=== PATIENT | female | born 1960 | race Caucasian/White ===

== ENCOUNTER → 2016-03-10 11:34 | Outpatient (CLI) | payer BC ==
[2016-01-27 11:52] VITALS: BMI 33.9
[~2016-03-10 11:34] MED LIST: BAYER CHEWABLE81 MG PO; DIABETIC VITAMIN PO; ELIQUIS2.5 MG PO; FISH OIL 1,2001 CAP PO; FLUTICASONE PRO16 GM NASAL; GLUCOPHAGE1000 MG PO; INVOKANA300 MG PO; LEVOTHYROXINE175 MCG PO; LISINOPRIL10 MG PO; LOPRESSOR25 MG PO; NITROSTAT0.4 MG SL; PERCOCET 10/3251 TA1 PO; PLAVIX75 MG PO; PROAIR HFA8.5 GM INH; TRESIBA FL100 UNIT/1 SC; TYLENOL W/CODEI1 TAB PO; VICTOZA0.6 MG/0.1 SQ; VITAMIN C1000 MG PO; ZANTAC150 MG PO; ZOCOR40 MG PO
== END | disposition home or self-care (01) ==
LOC: D.MRI 11:30
DX: M54.16 Radiculopathy, lumbar region (principal)

== ENCOUNTER → 2016-09-02 16:47 | Outpatient (CLI) | payer OTHER ==
[2016-01-27 11:52] VITALS: BMI 33.9
== END | disposition home or self-care (01) ==
LOC: D.MAMMO 15:15
DX: Z12.31 Encounter for screening mammogram for malignant neoplasm of breast (principal)